=== PATIENT | female | born 1980 | race Caucasian/White ===

== ENCOUNTER 2018-04-23 05:20 | Day surgery (SDC) | payer BC ==
[2018-04-22 14:06] LABS: HEMATOCRIT 32.8 % (36.0-48.0); MCH 25.9 pg (26.0-34.0); MCHC 33.5 g/dL (31.0-37.0); MCV 77.4 fL (80.0-100.0); MEAN PLATELET VOLUME 9.8 fL (7.4-10.4); RBC 4.24 10x6/uL (4.00-5.40)
[~2018-04-23] VITALS: Ht 152.4 cm; Wt 88.5 kg
--- NOTE | ~2018-04-23 | OP ---
PATIENT NAME: SUKHJINDER SORENSON MEDICAL RECORD: [id number] :80 LOCATION:[facility] ADMISSION DATE: SURGEON: MAXWELL ENGEL MD DATE OF OPERATION: 04/23/2018 PREOPERATIVE DIAGNOSES: 1. Lateral meniscus tear. 2. Parameniscal cyst of the lateral left joints. PROCEDURES: 1. Arthroscopic partial lateral meniscectomy of the left knee. 2. Open meniscal cyst excision. SURGEON: Maxwell Engel MD ANESTHESIA: General. INTRAOPERATIVE COMPLICATIONS: None. SUMMARY OF PATHOLOGIC FINDINGS: The patient had a cleavage plane tear of the lateral meniscus that required debridement back to stable meniscal elements. The lateral meniscal cyst was removed and the small area of what appeared to be opening into the lateral joint line was oversewn with a 2-0 Vicryl. OPERATIVE SUMMARY IN DETAIL: After obtaining the appropriate preoperative orthopedic surgery consent as well as anesthetic consultation, evaluation and clearance, the patient was brought to the operating room and placed on the operating table in supine position. After general laryngeal mask airway was administered, tourniquet was placed on the proximal aspect of left lower extremity. Left lower extremity was then prepped and draped in routine sterile fashion. Leg was elevated and exsanguinated, tourniquet was inflated to 350 mmHg. Routine inferolateral portal was established followed by superior medial portal and inferomedial portal. Diagnostic arthroscopy showed the patient's knee to otherwise be pristine except for this cleavage plane tear in the lateral meniscus. Combination of meniscotomes as well as a resector were utilized to debride the meniscus back to stable meniscal elements. Having completed this, attention was turned to meniscal cyst removal. A small incision was made in line with the lateral joint line, taken gently down to the parameniscal cyst, which was identified, isolated in its entirety and removed. The small area that appeared to be opening into the joint was not at this point leaking, however, #2 Vicryl was placed in a [id number] position over the small area. Having completed this, this wound was irrigated and closed with 2-0 Vicryl and 4-0 Prolene as were the arthroscopic portals. Sterile dressings were applied. Tourniquet was deflated. The patient was awakened and taken to the recovery room in stable condition. All final needle and sponge counts were correct. TRANSINT:[id number] Voice Confirmation ID: [id number] DOCUMENT ID: [id number] OPERATIVE REPORT [id number] SUKHJINDER SORENSON MD, MAXWELL ACEVES at 0724 CC: [id number] DICTATION DATE: 04/24/1842 [employer] OPERATOR: 04/24/1815 [facility] [place] 04/23/18 [place] [id number] [place] [id number]
[~2018-04-23 05:20] MED LIST: BENADRYL25 MG PO; NORCO 5/325 TAB1 TAB PO
[2018-04-23 05:36] VITALS: BP 127/90; Ht 152.4 cm; Wt 88.5 kg
[2018-04-23] MEDS ORDERED: NORCO 10-325 TA1 TAB PO (08:33)
== END 2018-04-23 10:40 | disposition home or self-care (01) ==
LOC: D.OPS 05:20 → D.PAN 12:30 → D.OPS 12:30
PROVIDERS: Anesthesiology
DX: S83.282A Other tear of lateral meniscus, current injury, left knee, initial encounter (principal); M23.062 Cystic meniscus, other lateral meniscus, left knee; Z01.812 Encounter for preprocedural laboratory examination